=== PATIENT | male | born 1995 ===

== ENCOUNTER 2023-01-22 11:51 | Emergency (ER) | payer SELFPAY ==
[2023-01-22] MEDS ORDERED: Ondansetron 4 MG/2 ML SDV IVPUSH ONE (12:01)
[2023-01-22] MEDS ORDERED: Sodium Chloride 0.9% 1,000 ML IV ONE ×3 (12:01→13:42)
[2023-01-22 12:49] LABS: BASE EXCESS VENOUS -11.2 (-2.0-3.0); PH,VENOUS 7.21 (7.31-7.41)
[2023-01-22 13:08] LABS: HEMATOCRIT 38.1 % (42.0-52.0); HEMOGLOBIN 11.8 g/dL (14.0-18.0); MEAN CORPUSCULAR VOLUME 75.1 fL (83.0-99.0); RED BLOOD CELL COUNT 5.07 M/uL (4.52-5.90); WHITE BLOOD CELL COUNT,WBC 13.68 K/uL (3.9-11.3)
[2023-01-22 13:09] LABS: BASOPHILS PERCENT AUTO 0.5 % (0.0-1.0); EOSINOPHILS PERCENT AUTO 0.1 % (0.0-6.0); LYMPHOCYTES PERCENT AUTO 18.1 % (24.0-44.0); MEAN CORPUSCULAR HEMOGLOBIN 23.3 pg (28.0-32.0); MEAN PLATELET VOLUME 8.3 fL (9.4-12.4); MONOCYTES PERCENT AUTO 4.4 % (0.0-8.0); NEUTROPHILS PERCENT AUTO 75.9 % (41.0-71.0); PLATELET COUNT,PLT 712 K/uL (150-400)
[2023-01-22 13:10] LABS: BASOPHILS ABSOLUTE AUTO 0.07 K/uL (0.00-0.20); EOSINOPHILS ABSOLUTE AUTO 0.02 K/uL (0.00-0.45); IMMATURE GRAN ABSOLUTE AUTO 0.14 K/uL (0.00-0.05); LYMPHOCYTES ABSOLUTE AUTO 2.47 K/uL (1.00-4.80); NEUTROPHILS ABSOLUTE AUTO 10.38 K/uL (1.80-7.70)
[2023-01-22 13:21] LABS: LACTIC ACID 3.5 mmol/L (0.4-2.0)
[2023-01-22 13:23] LABS: A/G RATIO 1.1 (0.9-1.6); ALANINE AMINOTRANSFERASE,ALT 15 IU/L (14-63); ALBUMIN 4.3 g/dL (3.4-5.0); ALKALINE PHOSPHATASE 80 U/L (46-116); ASPARTATE AMNIOTRANSFERASE,AST 16 IU/L (15-37); BILIRUBIN TOTAL 0.9 mg/dL (0.2-1.0); BLOOD UREA NITROGEN,BUN 27 mg/dL (7.0-18.0); CALCIUM 9.9 mg/dL (8.5-10.1); CARBON DIOXIDE,CO2 16.6 mmol/L (21.0-32.0); CHLORIDE,CL 92 mmol/L (98-107); CREATININE 1.2 mg/dL (0.8-1.3); EST CRCL DRUG DOSING (CG) 77.85 mL/min; ESTIMATED GFR 84 mL/min (>60); GLUCOSE RANDOM 492 mg/dL (74-106); MAGNESIUM 2.1 mg/dL (1.8-2.4); POTASSIUM,K 4.9 mmol/L (3.5-5.1); PROTEIN TOTAL,TP 8.3 g/dL (6.4-8.2); SODIUM,NA 132 mmol/L (136-148)
[2023-01-22] MEDS ORDERED: droPERidol 5 MG/2 ML SDV IVPUSH ONE (13:29)
[2023-01-22] MEDS ORDERED: Potassium Chloride 20 MEQ in Premix Bag 1 BAG IV ONE (13:34)
[2023-01-22] MEDS ORDERED: Insulin Regular in 0.9 % NACL 100 ML IV SCH (13:45)
[2023-01-22 14:13] LABS: APPEARANCE,URINE CLEAR; BILIRUBIN,URINE NEGATIVE (NEGATIVE); COLOR,URINE YELLOW; GLUCOSE,URINE >=1000 mg/dL (NEGATIVE); KETONES,URINE >=80 mg/dL (NEGATIVE); LEUKOCYTE ESTERASE,URINE NEGATIVE (NEGATIVE); NITRITE,URINE NEGATIVE (NEGATIVE); OCCULT BLOOD,URINE TRACE-INTACT (NEGATIVE); PH,URINE 5.5 (5.0-8.0); PROTEIN,URINE NEGATIVE (NEGATIVE); UROBILINOGEN,URINE 0.2 EU/dL (<2.0)
[2023-01-22 14:28] LABS: BACTERIA,URINE NOT SEEN (NEGATIVE); EPITHELIAL CELLS,URINE FEW (NONE-FEW); RBC,URINE 0-2 (0-2/HPF); WBC,URINE 0-1 (0-5/HPF); YEAST,URINE RARE
[2023-01-22 17:18] LABS: CALCIUM 7.9 mg/dL (8.5-10.1); CARBON DIOXIDE,CO2 13.7 mmol/L (21.0-32.0); EST CRCL DRUG DOSING (CG) 93.42 mL/min; POTASSIUM,K 4.5 mmol/L (3.5-5.1)
[2023-01-22] MEDS ORDERED: Insulin Glargine,Hum.Rec.Anlog 100 UNIT/ML 3 ML Pen SUBCUT STA (17:33)
== END 2023-01-22 17:51 | disposition left against medical advice (07) ==
LOC: EDSEX 11:51 → MW.ED 11:51
DX: E11.10 Type 2 diabetes mellitus with ketoacidosis without coma (principal)
CPT/HCPCS: 36415; 80048; 80053; 81001; 82009; 82803; 82947; 83605; 83735; 84484; 85025; 93005; 96361; 96365; 96366; 96375; 99285; A9270; J1790; J1815; J2405; J3480; J7030; 99284